=== PATIENT | male | born 1950 | race Caucasian/White ===

== ENCOUNTER → 2017-11-14 | Outpatient (CLI) | payer MEDICAID, MEDICARE ==
[2017-11-14 14:39] LABS: BASO # 0.1 10^3/uL (0.0-0.2); EOS # 0.2 10^3/uL (0.0-0.50); EOS % 2.7 % (0.0-3.0); HEMATOCRIT 44.6 % (42.0-52.0); HEMOGLOBIN 15.8 g/dl (13.5-17.5); IMMATURE GRANULOCYTE % 0.1 % (0-3.0); LYMPH # 1.5 10^3/uL (1.5-4.5); LYMPH % 21.8 % (24.0-44.0); MEAN CORPUSCULAR HEMOGLOBIN 29.5 pg (27.0-33.0); MEAN CORPUSCULAR HGB CONC 35.4 g/dl (32.0-36.5); MEAN CORPUSCULAR VOLUME 83.4 fl (80.0-96.0); MONO # 0.4 10^3/uL (0.0-0.8); MONO % 6.2 % (0.0-5.0); NEUTROPHILS # 4.6 10^3/uL (1.8-7.7); NEUTROPHILS % 68.2 % (36.0-66.0); PLATELET COUNT, AUTOMATED 243 10^3/uL (150-450); RED BLOOD COUNT 5.35 10^6/uL (4.30-6.10); RED CELL DISTRIBUTION WIDTH 12.6 % (11.5-14.5); WHITE BLOOD COUNT 6.7 10^3/uL (4.0-10.0)
[2017-11-14 15:11] LABS: ANION GAP 7 MEQ/L (8-16); BLOOD UREA NITROGEN 20 MG/DL (7-18); CALCIUM LEVEL 9.2 MG/DL (8.8-10.2); CARBON DIOXIDE LEVEL 29 MEQ/L (21-32); CHLORIDE LEVEL 105 MEQ/L (98-107); CREATININE FOR GFR 0.85 MG/DL (0.70-1.30); GLOMERULAR FILTRATION RATE > 60.0 (>49); GLUCOSE, FASTING 240 MG/DL (70-100); POTASSIUM SERUM 4.4 MEQ/L (3.5-5.1); SODIUM LEVEL 141 MEQ/L (136-145)
== END ==
LOC: M LAB 13:49
DX: I70.213 Atherosclerosis of native arteries of extremities with intermittent claudication, bilateral legs (principal); I70.262 Atherosclerosis of native arteries of extremities with gangrene, left leg
CPT/HCPCS: 80048

== ENCOUNTER → 2017-11-23 | Outpatient (CLI) | payer MEDICARE, MEDICAID ==
[~2017-11-23] MED LIST: HEPARIN 1,000 UNITS/ML 10ML VIAL (FOR RADIOLOGY& DIALYSIS ONLY) As Ordered; ISOVUE-300 61% 50ML VIAL (Q9967) As Ordered; MIDAZOLAM INJ 2 MG/2 ML VIAL (J2250) As Ordered; PROTAMINE SULF INJ 50 MG/5 ML VIAL (J2720) As Ordered; fentaNYL 100 MCG/2 ML INJECTION (J3010) As Ordered
== END | disposition home or self-care (01) ==
LOC: M IRPRO 09:02
DX: I70.244 Atherosclerosis of native arteries of left leg with ulceration of heel and midfoot (principal); L97.429 Non-pressure chronic ulcer of left heel and midfoot with unspecified severity; I70.245 Atherosclerosis of native arteries of left leg with ulceration of other part of foot; L97.529 Non-pressure chronic ulcer of other part of left foot with unspecified severity; I70.92 Chronic total occlusion of artery of the extremities; E11.622 Type 2 diabetes mellitus with other skin ulcer; I10 Essential (primary) hypertension; Z86.73 Personal history of transient ischemic attack (TIA), and cerebral infarction without residual deficits; E78.00 Pure hypercholesterolemia, unspecified; K21.9 Gastro-esophageal reflux disease without esophagitis
CPT/HCPCS: 37225

== ENCOUNTER → 2018-04-17 | Outpatient (CLI) | payer MEDICARE, MEDICAID ==
[2018-04-17 16:50] LABS: BASO # 0.1 10^3/uL (0.0-0.2); EOS # 0.3 10^3/uL (0.0-0.50); EOS % 4.1 % (0.0-3.0); HEMATOCRIT 46.3 % (42.0-52.0); IMMATURE GRANULOCYTE % 0.4 % (0-3.0); LYMPH % 23.6 % (24.0-44.0); MEAN CORPUSCULAR HEMOGLOBIN 29.7 pg (27.0-33.0); MEAN CORPUSCULAR HGB CONC 34.6 g/dl (32.0-36.5); MEAN CORPUSCULAR VOLUME 86.1 fl (80.0-96.0); MONO # 0.5 10^3/uL (0.0-0.8); MONO % 6.4 % (0.0-5.0); NEUTROPHILS # 5.4 10^3/uL (1.8-7.7); NEUTROPHILS % 64.5 % (36.0-66.0); PLATELET COUNT, AUTOMATED 206 10^3/uL (150-450); RED BLOOD COUNT 5.38 10^6/uL (4.30-6.10); WHITE BLOOD COUNT 8.3 10^3/uL (4.0-10.0)
[2018-04-17 17:20] LABS: ANION GAP 8 MEQ/L (8-16); BLOOD UREA NITROGEN 24 MG/DL (7-18); CALCIUM LEVEL 9.2 MG/DL (8.8-10.2); CARBON DIOXIDE LEVEL 27 MEQ/L (21-32); CHLORIDE LEVEL 107 MEQ/L (98-107); GLOMERULAR FILTRATION RATE > 60.0 (>49); GLUCOSE, FASTING 88 MG/DL (70-100); POTASSIUM SERUM 4.2 MEQ/L (3.5-5.1); SODIUM LEVEL 142 MEQ/L (136-145)
== END ==
LOC: M LAB 16:33
DX: I70.262 Atherosclerosis of native arteries of extremities with gangrene, left leg (principal)
CPT/HCPCS: 80048

== ENCOUNTER 2018-05-03 06:27 | Inpatient (IN) | payer MEDICARE, MEDICAID ==
[2018-05-03] MEDS ORDERED: fentaNYL 100 MCG/2 ML INJECTION (J3010) As Ordered (06:38)
[2018-05-03] MEDS ORDERED: LIDOCAINE 2% MDV 20 ML VIAL As Ordered (06:38)
[2018-05-03] MEDS ORDERED: ISOVUE-300 61% 50ML VIAL (Q9967) As Ordered (06:38)
[2018-05-03] MEDS ORDERED: HEPARIN 1,000 UNITS/ML 10ML VIAL (FOR RADIOLOGY& DIALYSIS ONLY) As Ordered (06:38)
[2018-05-03] MEDS ORDERED: MIDAZOLAM INJ 2 MG/2 ML VIAL (J2250) As Ordered (06:38)
[2018-05-03 09:38] LABS: HEMATOCRIT 43.3 % (42.0-52.0); HEMOGLOBIN 15.3 g/dl (13.5-17.5); MEAN CORPUSCULAR HEMOGLOBIN 29.9 pg (27.0-33.0); MEAN CORPUSCULAR HGB CONC 35.3 g/dl (32.0-36.5); MEAN CORPUSCULAR VOLUME 84.7 fl (80.0-96.0); PLATELET COUNT, AUTOMATED 181 10^3/uL (150-450); RED BLOOD COUNT 5.11 10^6/uL (4.30-6.10); WHITE BLOOD COUNT 6.6 10^3/uL (4.0-10.0)
[2018-05-03 10:04] LABS: ALBUMIN 3.5 GM/DL (3.2-5.2); ALBUMIN/GLOBULIN RATIO 1.25 (1.00-1.93); ALKALINE PHOSPHATASE 123 U/L (45-117); ALT/SGPT 35 U/L (12-78); ANION GAP 9 MEQ/L (8-16); AST/SGOT 15 U/L (7-37); BILIRUBIN,TOTAL 0.3 MG/DL (0.2-1.0); BLOOD UREA NITROGEN 18 MG/DL (7-18); CALCIUM LEVEL 8.7 MG/DL (8.8-10.2); CARBON DIOXIDE LEVEL 24 MEQ/L (21-32); CHLORIDE LEVEL 108 MEQ/L (98-107); CPK CREATINE PHOSPHOKINASE 98 U/L (39-308); CREATININE FOR GFR 0.78 MG/DL (0.70-1.30); GLOMERULAR FILTRATION RATE > 60.0 (>49); GLUCOSE, FASTING 154 MG/DL (70-100); MAGNESIUM LEVEL 1.8 MG/DL (1.8-2.4); MB/CK RELATIVE INDEX 3.16 (< OR =4); PHOSPHORUS LEVEL 3.6 MG/DL (2.5-4.9); POTASSIUM SERUM 3.8 MEQ/L (3.5-5.1); SODIUM LEVEL 141 MEQ/L (136-145); TOTAL PROTEIN 6.3 GM/DL (6.4-8.2)
[2018-05-03 10:24] LABS: TROPONIN I < 0.02 NG/ML (< 0.10)
[2018-05-03] MEDS ORDERED: DEXTROSE 50% 50 ML SYRINGE IV (10:45)
[2018-05-03] MEDS ORDERED: GLUCAGON FOR INJ 1 MG VIAL (J1610) SC (10:45)
[2018-05-03] MEDS ORDERED: ACETAMINOPHEN TAB 650MG DOSE (2X325MG) PO (10:45)
[2018-05-03] MEDS ORDERED: GLUCOSE 4 GM CHEW TABLET PO (10:45)
[2018-05-03] MEDS ORDERED: ONDANSETRON 4MG/2ML VIAL (J2405) IV (10:45)
[2018-05-03] MEDS: HumaLOG INSULIN (NovoLOG) PER UNIT SC ×3 (12:00→20:09)
[2018-05-03 12:03] LABS: MAGNESIUM LEVEL 1.9 MG/DL (1.8-2.4)
[2018-05-03 12:03] LABS: FREE THYROXINE INDEX 2.8 % (1.4-3.8); T UPTAKE 38 % (33-40); THYROXINE (T4) 7.3 UG/DL (4.5-12.0)
[2018-05-03 12:36] LABS: BEDSIDE GLUCOSE 146 MG/DL (80-115)
[2018-05-03] MEDS: METOPROLOL TART 25 MG TABLET PO ×2 (12:40→17:57)
[2018-05-03] MEDS: BENAZEPRIL 20 MG TAB PO (12:40)
[2018-05-03] MEDS: LEVEMIR (INSULIN DETEMIR) 1 UNITS/0.01ML SC (13:28)
[2018-05-03 16:49] LABS: BEDSIDE GLUCOSE 130 MG/DL (80-115)
[2018-05-03 20:05] LABS: BEDSIDE GLUCOSE 256 MG/DL (80-115)
[2018-05-03] MEDS: PRAVASTATIN 20 MG TAB PO (20:09)
[2018-05-04] MEDS: METOPROLOL TART 25 MG TABLET PO ×2 (00:16→06:24)
[2018-05-04 05:08] LABS: HEMATOCRIT 43.7 % (42.0-52.0); HEMOGLOBIN 15.3 g/dl (13.5-17.5); MEAN CORPUSCULAR HEMOGLOBIN 29.8 pg (27.0-33.0); PLATELET COUNT, AUTOMATED 169 10^3/uL (150-450); RED BLOOD COUNT 5.14 10^6/uL (4.30-6.10); RED CELL DISTRIBUTION WIDTH 12.9 % (11.5-14.5); WHITE BLOOD COUNT 7.5 10^3/uL (4.0-10.0)
[2018-05-04 05:33] LABS: ANION GAP 7 MEQ/L (8-16); BLOOD UREA NITROGEN 13 MG/DL (7-18); CALCIUM LEVEL 8.9 MG/DL (8.8-10.2); CARBON DIOXIDE LEVEL 25 MEQ/L (21-32); CHLORIDE LEVEL 110 MEQ/L (98-107); GLOMERULAR FILTRATION RATE > 60.0 (>49); GLUCOSE, FASTING 128 MG/DL (70-100); POTASSIUM SERUM 3.7 MEQ/L (3.5-5.1); SODIUM LEVEL 142 MEQ/L (136-145)
[2018-05-04] MEDS: BENAZEPRIL 20 MG TAB PO (08:16)
[2018-05-04] MEDS: LEVEMIR (INSULIN DETEMIR) 1 UNITS/0.01ML SC (08:17)
[2018-05-04] MEDS: HumaLOG INSULIN (NovoLOG) PER UNIT SC ×4 (08:18→20:21)
[2018-05-04 12:05] LABS: BEDSIDE GLUCOSE 166 MG/DL (80-115)
[2018-05-04] MEDS: METOPROLOL TART 50 MG TAB PO ×2 (12:13→17:03)
[2018-05-04 17:20] LABS: BEDSIDE GLUCOSE 134 MG/DL (80-115)
[2018-05-04] MEDS: PRAVASTATIN 20 MG TAB PO (20:21)
[2018-05-04 20:22] LABS: BEDSIDE GLUCOSE 248 MG/DL (80-115)
[2018-05-05] MEDS: METOPROLOL TART 50 MG TAB PO ×4 (00:11→18:00)
[2018-05-05 04:48] LABS: HEMATOCRIT 41.7 % (42.0-52.0); HEMOGLOBIN 14.6 g/dl (13.5-17.5); MEAN CORPUSCULAR HEMOGLOBIN 29.9 pg (27.0-33.0); MEAN CORPUSCULAR VOLUME 85.3 fl (80.0-96.0); PLATELET COUNT, AUTOMATED 165 10^3/uL (150-450); RED BLOOD COUNT 4.89 10^6/uL (4.30-6.10); RED CELL DISTRIBUTION WIDTH 13.1 % (11.5-14.5); WHITE BLOOD COUNT 6.1 10^3/uL (4.0-10.0)
[2018-05-05 05:08] LABS: ANION GAP 9 MEQ/L (8-16); BLOOD UREA NITROGEN 19 MG/DL (7-18); CALCIUM LEVEL 8.7 MG/DL (8.8-10.2); CARBON DIOXIDE LEVEL 25 MEQ/L (21-32); CHLORIDE LEVEL 109 MEQ/L (98-107); CREATININE FOR GFR 0.86 MG/DL (0.70-1.30); GLOMERULAR FILTRATION RATE > 60.0 (>49); GLUCOSE, FASTING 149 MG/DL (70-100); POTASSIUM SERUM 3.9 MEQ/L (3.5-5.1); SODIUM LEVEL 143 MEQ/L (136-145)
[2018-05-05] MEDS: HumaLOG INSULIN (NovoLOG) PER UNIT SC ×4 (07:30→19:56)
[2018-05-05] MEDS: LEVEMIR (INSULIN DETEMIR) 1 UNITS/0.01ML SC (08:33)
[2018-05-05] MEDS: BENAZEPRIL 20 MG TAB PO (08:34)
[2018-05-05 12:01] LABS: BEDSIDE GLUCOSE 187 MG/DL (80-115)
[2018-05-05] MEDS ORDERED: SLF 3 ML SYR IV (14:45)
[2018-05-05 16:49] LABS: BEDSIDE GLUCOSE 157 MG/DL (80-115)
[2018-05-05] MEDS: PRAVASTATIN 20 MG TAB PO (19:55)
[2018-05-05 19:56] LABS: BEDSIDE GLUCOSE 179 MG/DL (80-115)
[2018-05-05] MEDS: SLF 3 ML SYR IV (21:56)
[2018-05-06] MEDS: SLF 3 ML SYR IV (05:25)
[2018-05-06] MEDS: METOPROLOL TART 50 MG TAB PO ×2 (05:25)
[2018-05-06 06:13] LABS: HEMATOCRIT 41.5 % (42.0-52.0); HEMOGLOBIN 14.4 g/dl (13.5-17.5); MEAN CORPUSCULAR HEMOGLOBIN 29.4 pg (27.0-33.0); MEAN CORPUSCULAR HGB CONC 34.7 g/dl (32.0-36.5); MEAN CORPUSCULAR VOLUME 84.9 fl (80.0-96.0); PLATELET COUNT, AUTOMATED 173 10^3/uL (150-450); RED BLOOD COUNT 4.89 10^6/uL (4.30-6.10); RED CELL DISTRIBUTION WIDTH 12.8 % (11.5-14.5); WHITE BLOOD COUNT 6.4 10^3/uL (4.0-10.0)
[2018-05-06 06:16] LABS: ANION GAP 6 MEQ/L (8-16); BLOOD UREA NITROGEN 15 MG/DL (7-18); CALCIUM LEVEL 8.8 MG/DL (8.8-10.2); CARBON DIOXIDE LEVEL 27 MEQ/L (21-32); CHLORIDE LEVEL 109 MEQ/L (98-107); CREATININE FOR GFR 0.82 MG/DL (0.70-1.30); GLOMERULAR FILTRATION RATE > 60.0 (>49); GLUCOSE, FASTING 145 MG/DL (70-100); POTASSIUM SERUM 3.8 MEQ/L (3.5-5.1); SODIUM LEVEL 142 MEQ/L (136-145)
[2018-05-06] MEDS: HumaLOG INSULIN (NovoLOG) PER UNIT SC (07:30)
[2018-05-06] MEDS: LEVEMIR (INSULIN DETEMIR) 1 UNITS/0.01ML SC (08:08)
[2018-05-06] MEDS: BENAZEPRIL 20 MG TAB PO (08:15)
[2018-05-06 12:23] LABS: BEDSIDE GLUCOSE 154 MG/DL (80-115)
== END 2018-05-06 12:42 | disposition home or self-care (01) | DRG 309 ==
LOC: M IRPRO 06:27 → M PCU 14:32
DX: I48.0 Paroxysmal atrial fibrillation (principal); I69.352 Hemiplegia and hemiparesis following cerebral infarction affecting left dominant side; I50.22 Chronic systolic (congestive) heart failure; I11.0 Hypertensive heart disease with heart failure; E78.5 Hyperlipidemia, unspecified; E11.621 Type 2 diabetes mellitus with foot ulcer; G47.33 Obstructive sleep apnea (adult) (pediatric); L97.529 Non-pressure chronic ulcer of other part of left foot with unspecified severity; Z79.4 Long term (current) use of insulin; Z79.899 Other long term (current) drug therapy; Z91.19 Patient's noncompliance with other medical treatment and regimen

== ENCOUNTER → 2020-09-20 | Outpatient (CLI) | payer MEDICARE, MEDICAID ==
[~2020-09-20] MED LIST changes: +BENA20TA8 PO; +ELIQ5TAB PO; -HEPARIN 1,000 UNITS/ML 10ML VIAL (FOR RADIOLOGY& DIALYSIS ONLY) As Ordered; +INSUDET SC; -ISOVUE-300 61% 50ML VIAL (Q9967) As Ordered; +METF500T13 PO; -MIDAZOLAM INJ 2 MG/2 ML VIAL (J2250) As Ordered; +PRAV40TA2 PO; +PROT1TAB2 PO; -PROTAMINE SULF INJ 50 MG/5 ML VIAL (J2720) As Ordered; -fentaNYL 100 MCG/2 ML INJECTION (J3010) As Ordered
== END ==
LOC: M PLARAD 11:03
PROVIDERS: ATTEND Urology
DX: Z53.9 Procedure and treatment not carried out, unspecified reason (principal); R31.9 Hematuria, unspecified

== ENCOUNTER → 2020-11-08 | Outpatient (CLI) | payer MEDICARE, MEDICAID ==
--- NOTE | 2020-11-09 11:08 | REP ---
INDICATION: STAGING BLADDER CANCER C67.01. COMPARISON: There are no prior PET CTs for comparison. Prior CT of the chest 07/05/2020 from an outside institution has been made available for review. Prior whole bone scintiscan obtained on that same day from a different outside institution is also been made available for review. TECHNIQUE: After the intravenous administration of 13.53 mCi of FDG 18 triplane whole-body PET-CT was performed from the skull base to the mid thigh. FINDINGS: In the inferior left lobe of the thyroid gland there is a focus of abnormal hypermetabolic activity with maximal SUV value of 6.81. The CT component of today's PET-CT( which is a nondiagnostic CT) shows this area to be of low density. It was present on the prior CT 07/05/2020 but partially obscured by spray artifact due to heavy density iodinated contrast within the left brachiocephalic vein. There is a single focus of hypermetabolic activity seen in the retroperitoneum on the left which is superior and medial to the left ureter. This has a maximal SUV value of 2.8. There are no other areas of abnormal hypermetabolic activity seen in the neck, chest, abdomen, or pelvis. No abnormal hypermetabolic activity seen in the imaged portion of the left femur. No abnormal hypermetabolic activity seen in the ribs. Those aforementioned areas were of particular interest on the previous bone scan. IMPRESSION: 1. There is abnormal hypermetabolic activity seen in the left lobe of the thyroid gland as described above. Etiology uncertain. Neoplasm cannot be ruled out. 2. Single focus of hypermetabolic activity seen in the retroperitoneum on the left as described above. There is no concomitant adenopathy, however. Etiology uncertain. Follow-up is recommended. 3. Other findings or absence of findings as described above. <Electronically signed by Crispin Wilkins > 11/09/20 [id number]
== END ==
LOC: M PLARAD 12:16
PROVIDERS: ATTEND Urology
DX: C67.0 Malignant neoplasm of trigone of bladder (principal)
CPT/HCPCS: 78815; A9552

== ENCOUNTER 2024-04-07 00:26 | Emergency (ER) | payer MEDICARE, MEDICAID ==
[~2024-04-07] VITALS: Ht 170.2 cm; Wt 102.0 kg
[~2024-04-07 00:26] MED LIST changes: +BENA-8 PO; -BENA20TA8 PO
[2024-04-07 00:34] VITALS: TEMP 98
[2024-04-07 02:15] VITALS: BP 132/89; O2SAT 99
== END 2024-04-07 03:00 | disposition home or self-care (01) ==
LOC: M ED 00:26
DX: S00.03XA Contusion of scalp, initial encounter (principal); Y92.019 Unspecified place in single-family (private) house as the place of occurrence of the external cause; Y93.9 Activity, unspecified; Y99.9 Unspecified external cause status; W06.XXXA Fall from bed, initial encounter; I48.91 Unspecified atrial fibrillation; I45.2 Bifascicular block; E11.9 Type 2 diabetes mellitus without complications; I10 Essential (primary) hypertension; E78.5 Hyperlipidemia, unspecified; Z79.01 Long term (current) use of anticoagulants; Z79.4 Long term (current) use of insulin; Z79.84 Long term (current) use of oral hypoglycemic drugs